=== PATIENT | female | born 1955 | race Caucasian/White ===

== ENCOUNTER 2023-05-12 14:17 | Emergency (ER) | payer OTHER ==
[~2023-05-12] VITALS: Ht 154.9 cm; Wt 70.3 kg
[2023-05-12 14:17] VITALS: BP_SYST 160
--- NOTE | 2023-05-12 14:17 | NUR ---
BROUGHT BACK TO BED #7 AND TRIAGED. REPORT GIVEN TO NIKITA
--- NOTE | 2023-05-12 14:20 | NUR ---
Pt brought by , A&Ox4, pt presents to ER with R facial swelling and pain since yesterday, skin pink and warm, afebrile, VSS, respirations even and unlabored, cap refill <3.
--- NOTE | 2023-05-12 14:40 | NUR ---
Dr Martines evaluating patient at bedside
[2023-05-12] MEDS ORDERED: KETOROLAC TROMETHAMINE 30 MG VIAL IVP ONE (15:00)
--- NOTE | 2023-05-12 15:25 | NUR ---
PATIENT OUT OF ED TO CT
--- NOTE | 2023-05-12 15:35 | NUR ---
PATIENT RETURNED FROM CT
[2023-05-12 15:42] LABS: BASOPHILS % (AUTO) 0.4 % (0.0-2.0); EOSINOPHILS # (AUTO) 0.1 K/uL (0.0-0.4); EOSINOPHILS % (AUTO) 0.8 % (0.0-4.0); LYMPHOCYTES # (AUTO) 2.1 K/uL (1.0-5.5); LYMPHOCYTES % (AUTO) 20.9 % (20.5-51.5); MEAN CORPUSCULAR HEMOGLOBIN 32 pg (27-31); MEAN CORPUSCULAR HGB CONC 34 % (32-36); MEAN CORPUSCULAR VOLUME 92 fL (79.0-98.0); MONOCYTES # (AUTO) 0.5 K/uL (0.0-1.0); MONOCYTES % (AUTO) 5.3 % (1.7-9.3); NEUTROPHILS # (AUTO) 7.4 K/uL (1.8-7.7); NEUTROPHILS % (AUTO) 72.6 % (40.0-70.0); PLATELET COUNT (AUTO) 234 K/uL (130-430); RED BLOOD CELL COUNT(AUTO) 4.44 MIL/uL (4.2-6.2); RED CELL DISTRIBUTION WIDTH 13.6 % (9.0-15.0); WHITE BLOOD COUNT (AUTO) 10.2 K/uL (4.8-10.8)
[2023-05-12 15:55] LABS: CALCIUM 8.7 mg/dL (8.4-11.0); CREATININE 0.76 mg/dL (0.55-1.30)
[2023-05-12 16:00] LABS: ALBUMIN 3.9 g/dL (3.4-4.8)
[2023-05-12] MEDS ORDERED: IBUP-1969 PO (17:03)
[2023-05-12] MEDS ORDERED: HYDR-3917 PO (17:03)
--- NOTE | 2023-05-12 17:34 | NUR ---
Patient given written and verbal discharge instructions and verbalizes understanding. ER MD discussed with patient the results and treatment provided. Patient in stable condition. ID arm band removed. Rx of [place] and Ibuprofen given. Patient educated on pain management and to follow up with PMD. Pain Scale 3/10. Opportunity for questions provided and answered. Medication side effect fact sheet provided.
[2023-05-12 17:35] VITALS: BP_SYST 160
== END 2023-05-12 17:35 | disposition home or self-care (01) ==
LOC: SED 14:17
DX: K04.7 Periapical abscess without sinus (principal); R22.0 Localized swelling, mass and lump, head; Z88.0 Allergy status to penicillin; Z79.899 Other long term (current) drug therapy
CPT/HCPCS: 99285; 96374; 70487; 80053; 85025; 36415; 76376; J1885; Q9967